=== PATIENT | female | born 1970 | race Caucasian/White ===

== ENCOUNTER 2019-12-14 15:05 | Emergency (ER) | payer BC ==
[2019-12-14 15:00] LABS: BASO # 0.1 10^3/uL (0.0-0.2); EOS # 0.2 10^3/uL (0.0-0.5); EOS % 1.8 % (0.0-3.0); HEMATOCRIT 40.5 % (36.0-47.0); HEMOGLOBIN 13.2 g/dl (12.0-15.5); LYMPH # 2.1 10^3/uL (1.5-5.0); LYMPH % 24.8 % (24.0-44.0); MEAN CORPUSCULAR HEMOGLOBIN 29.9 pg (27.0-33.0); MEAN CORPUSCULAR HGB CONC 32.6 g/dl (32.0-36.5); MEAN CORPUSCULAR VOLUME 91.6 fl (80.0-96.0); MONO # 0.5 10^3/uL (0.0-0.8); MONO % 6.4 % (0.0-5.0); NEUTROPHILS # 5.5 10^3/uL (1.5-8.5); NEUTROPHILS % 65.6 % (36.0-66.0); PLATELET COUNT, AUTOMATED 371 10^3/uL (150-450); RED BLOOD COUNT 4.42 10^6/uL (4.00-5.40); WHITE BLOOD COUNT 8.4 10^3/uL (4.0-10.0)
[~2019-12-14 15:05] MED LIST changes: -CITA40TA4 PO; -HOLTER MONITOR XX; -HYDR-3363 PO; -LEVO50TA5 PO; -LOVA20TA2 PO
[2019-12-14] MEDS ORDERED: LEVO50TA5 PO (15:36)
[2019-12-14] MEDS ORDERED: CITA40TA4 PO (15:36)
[2019-12-14] MEDS ORDERED: HYDR-3363 PO (15:36)
[2019-12-14] MEDS ORDERED: LOVA20TA2 PO (15:36)
[2019-12-14 15:38] LABS: BLOOD UREA NITROGEN 13 MG/DL (7-18); CALCIUM LEVEL 9.1 MG/DL (8.5-10.1); CARBON DIOXIDE LEVEL 27 MEQ/L (21-32); CHLORIDE LEVEL 107 MEQ/L (98-107); CK-MB VALUE MASS < 1.0 NG/ML (<3.6); CPK CREATINE PHOSPHOKINASE 79 U/L (26-192); GLOMERULAR FILTRATION RATE > 60.0 (>51); GLUCOSE, FASTING 88 MG/DL (70-100); MB/CK RELATIVE INDEX 1.27 (< OR =4); POTASSIUM SERUM 3.9 MEQ/L (3.5-5.1); SODIUM LEVEL 141 MEQ/L (136-145); THYROID STIMULATING HORMONE 0.859 uIU/ML (0.358-3.740); THYROXINE (T4) 9.1 UG/DL (4.5-12.0); TROPONIN I < 0.02 NG/ML (< 0.10)
[2019-12-14] MEDS ORDERED: HOLTER MONITOR XX (16:04)
[2019-12-14 16:15] VITALS: BP 125/71
--- NOTE | 2019-12-14 16:51 | REP ---
CHEST, SINGLE VIEW: There is no evidence of acute infiltrate. No pleural effusion is seen. The heart is normal in size. The mediastinal silhouette is unremarkable. The visualized osseous structures are intact. IMPRESSION: No acute pulmonary disease. Electronically Signed by Antolin Schwartz MD 12/14/2019 05:06 P
--- NOTE | 2019-12-15 14:57 | ECGEPIP ---
[facility] - ED Test Date: 2019-12-14 Pat Name: AKIRA LI Department: Room: - Gender: Female Systems Software Engineer: MURPHY : 1970 Requested By: Socrates Euceda Order Number: [id number] Reading MD: Marvin Callaway Measurements Intervals Jeremiah Rate: 71 P: -19 ME: 130 QRS: -24 QRSD: 87 T: -16 QT: 392 QTc: 426 Interpretive Statements SINUS RHYTHM WITH SINUS ARRHYTHMIA BORDERLINE LEFT AXIS DEVIATION High impedance lead II Comparison tracing not on file Electronically Signed on 12-15-2019 14:56:36 EST by Marvin Callaway
== END 2019-12-14 16:26 | disposition home or self-care (01) ==
LOC: EDBD 15:05 → M ED 15:05
DX: R00.2 Palpitations (principal); R94.31 Abnormal electrocardiogram [ECG] [EKG]; I10 Essential (primary) hypertension; F41.9 Anxiety disorder, unspecified; F33.9 Major depressive disorder, recurrent, unspecified; F17.210 Nicotine dependence, cigarettes, uncomplicated; Z79.899 Other long term (current) drug therapy

== ENCOUNTER → 2019-12-14 | Outpatient (CLI) | payer BC ==
[~2019-12-14] MED LIST: CITA40TA4 PO; HOLTER MONITOR XX; HYDR-3363 PO; LEVO50TA5 PO; LOVA20TA2 PO; TRAZ1TAB11 PO
--- NOTE | 2019-12-17 16:45 | HOLTMON ---
[facility] Test Date: 2019-12-14 Pat Name: AKIRA LI Department: Room: - Gender: Female System Auditor: SALMA MELLO : 1970 Requested By: Socrates Euceda Order Number: [id number] Reading MD: Marvin Mccormick Interpretive Statements Predominently sinus rhythm; HR 56-121, average 88. Rare PACs and couplets. Rare isolated PVCs. No symptoms reported. Electronically Signed on 12-17-2019 16:45:30 EST by Marvin Mccormick
== END ==
LOC: M EKG 16:29
PROVIDERS: ATTEND Emergency Medicine
DX: R00.2 Palpitations (principal)